=== PATIENT | female | born 1990 | race Two or more races ===

== ENCOUNTER 2021-07-19 10:34 | Emergency (ER) | payer MEDICAID, OTHER ==
[~2021-07-19] VITALS: Ht 157.5 cm; Wt 61.2 kg
[2021-07-19 11:33] VITALS: BP 109/75
[2021-07-19] MEDS ORDERED: ACETAMINOPHEN 500 MG TAB PO ONE (12:15)
[2021-07-19] MEDS ORDERED: METH500T22 PO (12:33)
[2021-07-19] MEDS ORDERED: IBUP600T27 PO (12:33)
== END 2021-07-19 12:41 | disposition home or self-care (01) ==
LOC: ER 10:34
DX: S20.211A Contusion of right front wall of thorax, initial encounter (principal); S80.12XA Contusion of left lower leg, initial encounter; V43.52XA Car driver injured in collision with other type car in traffic accident, initial encounter; Y93.89 Activity, other specified; Y92.488 Other paved roadways as the place of occurrence of the external cause; Y99.8 Other external cause status
CPT/HCPCS: 71046; 73560

== ENCOUNTER 2021-08-23 11:41 | Emergency (ER) | payer MEDICAID ==
[~2021-08-23] VITALS: Ht 154.9 cm; Wt 61.2 kg
[~2021-08-23 11:41] MED LIST: IBUP600T27 PO; METH500T22 PO
[2021-08-23 13:15] LABS: Basophils # (auto) 0 10 ^3/uL (0-0.2); Basophils % (auto) 0.6 % (0.0-2.0); Eosinophils # (auto) 0.1 10 ^3/uL (0-0.8); Eosinophils % (auto) 0.8 % (0.0-7.0); Hematocrit 34.8 % (36.0-46.0); Lymphocytes # (auto) 1.4 10 ^3/uL (0.4-5.4); Lymphocytes % (auto) 23.3 % (10.0-50.0); Mean Corpuscular Hemoglobin 30.3 pg (28.0-32.0); Mean Corpuscular Hgb Conc. 34.3 g/dL (32.0-36.0); Mean Corpuscular Volume 88.4 fL (80.0-100.0); Monocytes # (auto) 0.4 10 ^3/uL (0-1.3); Monocytes % (auto) 6.8 % (0.0-12.0); Neutrophils # (auto) 4.1 10 ^3/uL (1.6-8.6); Neutrophils % (auto) 68.5 % (37.0-80.0); Nucleated Red Blood Cells % 0.2 %; Red Blood Cells 3.94 10^6/uL (4.0-5.20); Red Cell Distribution Width 12.5 % (11.8-14.3)
[2021-08-23 13:23] LABS: Urine Bacteria NONE SEEN /hpf (None Seen); Urine Blood 2+ /uL (Negative); Urine Mucus FEW (None Seen); Urine Specific Gravity 1.034 (1.001-1.035); Urine WBC 3 /hpf (0 - 5)
[2021-08-23 13:54] LABS: Albumin 4.1 g/dL (3.4-5.0); BUN/Creatinine Ratio 16.9; Bilirubin, Total 0.3 mg/dL (0.2-1.0); Calcium 9.5 mg/dL (8.5-10.1); Total Protein 8.1 g/dL (6.4-8.2)
[2021-08-23 15:31] VITALS: BP 111/62
[2021-08-23] MEDS ORDERED: TAM04C PO (15:31)
[2021-08-23] MEDS ORDERED: IBUP600T27 PO (15:31)
== END 2021-08-23 15:41 | disposition home or self-care (01) ==
LOC: ER 11:41
DX: N20.0 Calculus of kidney (principal); N83.202 Unspecified ovarian cyst, left side
CPT/HCPCS: 36415; 74176; 80053; 81001; 83690; 85025

== ENCOUNTER 2024-02-19 09:58 | Emergency (ER) | payer MEDICAID ==
[~2024-02-19] VITALS: Ht 157.5 cm; Wt 60.4 kg
[~2024-02-19 09:58] MED LIST changes: +IBUP-1454 PO; -IBUP600T27 PO; +METH-1181 PO; -METH500T22 PO; +TAMS-35 PO
[2024-02-19 10:24] VITALS: BP 116/84; PULSE 89; RESP 16; TEMP 98.1; O2SAT 98
[2024-02-19] MEDS: ACETAMINOPHEN 500 MG TAB PO ONE (11:03)
[2024-02-19] MEDS ORDERED: BACL10TA PO (11:13)
== END 2024-02-19 11:17 | disposition home or self-care (01) ==
LOC: ER 09:58
DX: M54.41 Lumbago with sciatica, right side (principal); Z79.1 Long term (current) use of non-steroidal anti-inflammatories (NSAID); Z79.899 Other long term (current) drug therapy
CPT/HCPCS: 73502